=== PATIENT | male | born 1960 | race Caucasian/White ===

== ENCOUNTER → 2021-02-01 12:08 | Outpatient (CLI) | payer BC, SELFPAY ==
--- NOTE | ~2021-02-01 | MR_ITS ---
EXAMINATION: MR brain/brain stem wo/w con DATE: 02/01/2021 14:12 INDICATION: Other symptoms and signs involving cognitive functions. Memory loss. TECHNIQUE: Magnetic resonance imaging (MRI) of the brain and brainstem was performed without and with 18 mL MultiHance intravenous contrast. Sequences included sagittal and axial T1-weighted FSE, axial diffusion-weighted FS EPI, axial T2*-weighted GRE, axial T2-weighted FLAIR Propeller, and axial T2-we ighted Propeller. Postcontrast sequences included axial, sagittal, and coronal T1-weighted FSE. Appar ent diffusion coefficient (ADC) maps were created. COMPARISON: None. FINDINGS: There are scattered areas of nonspecific increased T2-weighted signal intensity in the cere bral white matter, which is within normal limits for the patient's age. There is no intracranial hemo rrhage, acute infarction, or abnormal intracranial mass lesion. The ventricles are normal in size. Th ere is a trace right pleural effusion. The orbits are normal. There is mild mucosal thickening in the ethmoid sinuses. IMPRESSION: 1. Normal aging brain. Reviewed, dictated and finalized at location A. STAIRS MAID IMPRESSION: 1. Normal aging brain.
[2021-02-01 13:42] LABS: Estimated Glomerular Filt Rate > 60
== END ==
PROVIDERS: PCP Physician Assistant; Visit Provider Physician Assistant
DX: R41.89 Other symptoms and signs involving cognitive functions and awareness (principal)
CPT/HCPCS: 70553; A9577

== ENCOUNTER 2023-03-13 13:28 | Emergency (ER) | payer BC, SELFPAY ==
[2023-03-13] VITALS (7 sets, daily range): BP systolic 110; BP diastolic 70; PULSE 72–81; RESP 17–27; TEMP 36.5; O2SAT 97–100
--- NOTE | ~2023-03-13 | CT_ITS ---
EXAMINATION: CT facial & cervical spine wo DATE: 03/13/2023 13:59 INDICATION: Fall. Facial injury. TECHNIQUE: Computed tomography (CT) of the facial bones and maxillofacial region and cervical spine w as performed without intravenous contrast. Automated exposure control and iterative reconstruction te chnique were employed. Exam dose: 546.47 mGy-cm total exam DLP. COMPARISON: None. FINDINGS: Examination is limited due to motion artifact. The frontozygomatic sutures, orbital rims and pittman, zygomatic arches, maxillary bones and pterygoid plates are intact. There is some motion artifact, but the nasal bones appear intact. Motion limits ev aluation of the mandible. The paranasal sinuses are normally developed and aerated, without opacification or fluid levels. There is straightening of cervical spine which may be due to muscle spasm. C1 and C2 are normally aligned and the odontoid process is intact. No fracture or dislocation or lock ed facet or prevertebral soft tissue swelling. There is moderate degenerative disc disease at C2-3. There is mild degenerative disc disease and minimal anterolisthesis at C3-4. C4-5 interspace is relatively well preserved. There is mildly severe degenerative disc disease at C5-6 and C6-C7. Uncovertebral joint spurring is noted, most prominent on the left at C5-6 and on the right at C6-7. IMPRESSION: Limited examination due to motion artifact Straightening of the cervical spine, which may be due to muscle spasm Moderately prominent cervical spondylosis; no fracture or dislocation or locked facet No apparent facial bone fracture Reviewed, dictated and finalized at Location A. Reviewed, dictated and finalized at location B. COORDINATOR
--- NOTE | ~2023-03-13 | CT_ITS ---
EXAMINATION: CT brain wo con DATE: 03/13/2023 13:59 INDICATION: Fall. Patient found face down. History of dementia. TECHNIQUE: Computed tomography (CT) of the head was performed without intravenous contrast. The mA wa s adjusted according to patient size. Iterative reconstruction technique was employed. Exam dose: 12 10.67 mGy-cm total exam DLP. COMPARISON: 02/01/2021 MRI brain/brainstem FINDINGS: Examination is limited by motion artifact despite 2 sets of images being performed. No intracranial mass lesion or hemorrhage, midline shift or mass effect or subdural or epidural hemat patricia is detected. Moderate cerebral and cerebellar volume loss. Intracranial cerebral calcified atherosclerosis. Nonspecific diminished attenuation of the cerebral w mica matter, likely due to chronic small vessel ischemic changes. Included paranasal sinuses and mastoid air cells are normally developed and aerated. No fracture or bone destruction of the cranial vault is evident. IMPRESSION: Limited examination due to motion; no acute intracranial finding or skull fracture is de tected Reviewed, dictated and finalized at Location A. Reviewed, dictated and finalized at location B. [facility]AL COURT REPORTER IMPRESSION: Limited examination due to motion; no acute intracranial finding o r skull fracture is detected
--- NOTE | 2023-03-13 13:36 | PC.NURSE ---
Pt answering orientation question, states he is Raymon Wilson pt states he is located in [facility] Pt giggling with answers
--- NOTE | 2023-03-13 15:05 | ED.FALL ---
HPI - Fall General Chief Complaint: Fall Stated Complaint: found on ground, facial injuries, +ETOH Time Seen by Provider: 03/13/23 14:05 History of Present Illness HPI Narrative: Patient is a 62-year-old male with a history of frontotemporal dementia presenting after a fall. Patient's is at bedside and helps with the history. 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 Sounds like he had purchased an airplane bottle of fireball. Patient has been declining in terms of his dementia and he does not recall falling today. He denies any complaints. No headache, facial pain, neck pain. Related Data Home Medications Medication Instructions Recorded Confirmed sertraline 100 mg tablet 100 mg PO DAILY 10/05/21 07/17/22 Allergies Allergy/AdvReac Type Severity Reaction Status Date / Time No Known Allergies Allergy Verified 01/21/23 09:58 Review of Systems Review of Systems: All systems reviewed & are unremarkable except as noted in HPI and below PMFSH Surgical History Surgical History H/O colonoscopy (~01/2011) H/O colonoscopy (~01/2016) Family History Family History Father Hypertension Family history of elevated blood lipids Acute myocardial infarction Malignant neoplasm of prostate Family history of coronary artery disease Social History Social History Smoking status: Never smoker Second hand tobacco smoke exposure: No Alcohol intake: current Drinks per week: 10 Substance use: never Substance use type: does not use Lack of Transportation: No Lack of Food: Never True Current Housing: I Have Housing Concerned About Future Housing: No Difficulty Paying Gas/Electric Bills: No Difficulty Paying for Meds: No Currently Unemployed: No Difficulty w/ Childcare or Family Care: No Living arrangements: with family Occupation/Education: occupation Gender identity (if verbalized by the patient): Male Exam Narrative: GENERAL: Nontoxic, no acute distress, pleasant and cooperative HEAD: Normocephalic, abrasion to upper nasal bridge EYES: PERRLA and EOMI. ENT: Nares clear, no rhinorrhea or epistaxis. Mucous membranes moist. NECK: Supple. no midline tenderness CHEST: Clear to auscultation. No respiratory distress. HEART: Regular rate and rhythm ABDOMEN: Soft, nontender, nondistended EXTREMITIES: Normal range of motion. SKIN: Warm, dry, no rash. NEURO: Alert and oriented x1. PSYCH: Normal mood and affect. Course Vital Signs Vital signs: Vital Signs Temperature 97.7 F 03/13/23 13:25 Pulse Rate 81 03/13/23 13:25 Respiratory Rate 24 H 03/13/23 13:25 Blood Pressure 110/70 03/13/23 13:25 Pulse Oximetry 98 03/13/23 13:25 Oxygen Delivery Room Air 03/13/23 13:25 Temperature 97.7 F 03/13/23 13:25 Pulse Rate 72 03/13/23 15:00 Respiratory Rate 20 03/13/23 15:00 Blood Pressure 110/70 03/13/23 13:25 Pulse Oximetry 100 03/13/23 15:00 Oxygen Delivery Room Air 03/13/23 13:25 MDM - Fall MDM Narrative Medical decision making narrative: 62-year-old male presenting after a fall. Vitals stable. Exam remarkable for the above. CT brain, facial bones, C-spine show no acute abnormalities. Patient is safe for outpatient management. Patient's is here, will stay with him. Appropriate return precautions given. Discharged stable condition. Differential Diagnosis Differential diagnosis: Likely other ( Fall, facial abrasion) Medical Records Attestation: I reviewed the patient's medical records. Imaging Data Radiologist's impression: ITS Impressions Head CT 03/13/23 13:59 IMPRESSION: Limited examination due to motion; no acute intracranial finding or skull fracture is detecte
== END 2023-03-13 15:25 | disposition home or self-care (01) ==
PROVIDERS: Emergency Provider Emergency Medicine; PCP Family Medicine
DX: S00.31XA Abrasion of nose, initial encounter (principal); G31.09 Other frontotemporal neurocognitive disorder; F02.80 Dementia in other diseases classified elsewhere, unspecified severity, without behavioral disturbance, psychotic disturbance, mood disturbance, and anxiety; W19.XXXA Unspecified fall, initial encounter
CPT/HCPCS: 70450; 70486; 72125; 99284; L0140

== ENCOUNTER 2024-03-27 13:56 | Emergency (ER) | payer BC, MEDICARE, SELFPAY ==
--- NOTE | ~2024-03-27 | XR_ITS ---
EXAMINATION: XR chest 2V 03/27/2024 14:58 INDICATION: Status post fall. Chest pain. PROCEDURE: 2 view chest COMPARISON: No prior studies for comparison. FINDINGS: The lungs are clear. The cardiomediastinal silhouette is within normal limits. There are no pleural effusions. There is no pneumothorax suspected. IMPRESSION: 1: NO ACUTE CARDIOPULMONARY DISEASE. Reviewed, dictated and finalized at location A. 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
--- NOTE | ~2024-03-27 | CT_ITS ---
EXAMINATION: 1. CT facial & cervical spine wo DATE: 03/27/2024 15:06 INDICATION: Head injury TECHNIQUE: 1. Computed tomography (CT) of the maxillofacial region and of the cervical spine were performed with out intravenous contrast. Sagittal and coronal reconstructions of both regions were obtained. The mA was adjusted according to patient size. Iterative reconstruction technique was employed. The dose-chani gth product was 613.42 mGy-cm. COMPARISON: None. FINDINGS: Maxillofacial CT: Mild scattered motion artifact. Small anterior left frontal scalp hematoma without underlying calvari al fracture. No maxillofacial fractures. Specifically the nasal bones,, zygomatic arches, mandible an d pittman of the orbits and paranasal sinuses are intact. Mastoid air cells and middle ear cavities are clear. There is also thickening in the right sphenoid sinus.. Cervical spine CT: 15 degrees cervicothoracic dextroscoliosis. Sagittal alignment is normal. Vertebral body heights are normal. No acute fracture. Moderate disc height loss with severe left-sided and moderate right-sided uncovertebral osteoarthritis at C5-C6 and C6-C7. Mild disc height loss at C2-C3 and multiple levels i n the visualized upper thoracic spine. Disc bulge at C2-C3, C4-C5 and posterior disc osteophyte compl ex at C5-C6 resulting in mild central canal stenosis. There is multilevel moderate to severe left-mary ed and mild to moderate right-sided cervical facet osteoarthritis. There is multilevel bilateral cerv ical neural foraminal stenosis, moderate on the right at C3-C4 and on the left at C3-C4 through C5-C6 . Mild to moderate neural foraminal stenosis on the right at C6-C7 and on the left at C7-T1. Mild jemal ral from stenosis at the remaining cervical levels. Visualized portions of the upper lungs are clear. Visualized superior mediastinum and cervical soft tissues are unremarkable. IMPRESSION: 1. No maxillofacial fractures. 2. Moderate cervical spondylosis without acute osseous abnormality. Reviewed, dictated and finalized at location B. 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
--- NOTE | ~2024-03-27 | CT_ITS ---
EXAMINATION: CT brain wo con DATE: 03/27/2024 15:06 INDICATION: Head injury TECHNIQUE: Computed tomography (CT) of the head was performed without intravenous contrast. Sagittal and coronal reconstructions were performed. The mA was adjusted according to patient size. Iterative reconstruction technique was employed. The dose-length product was 681.00 mGy-cm. COMPARISON: head CT dated 03/13/2023 FINDINGS: No fracture. No acute intracranial hemorrhage, acute infarction or abnormal extra axial fluid collect ion. Ventricles are normal and symmetric. No mass/mass effect. Mild mucosal thickening the right sphe noid sinus. The orbits and mastoid air cells are normal. IMPRESSION: 1. No fracture or acute intracranial process. Reviewed, dictated and finalized at location B. 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
--- NOTE | ~2024-03-27 | XR_ITS ---
XR pelvis 1-2V 03/27/2024 14:58 Indication: Pelvic pain after fall Procedure: AP pelvis Comparison: No prior studies for comparison. Findings: Mild osteoarthritis of the hips. Pelvic rings are intact. There is lower lumbar spondylosis . Sclerotic lesion in the left femur proximally likely a bone island. No acute fracture or traumatic malalignment. Sacral foramen are symmetric. There are pelvic phleboliths. Impression: 1: No acute abnormality of the pelvis. Reviewed, dictated and finalized at location A. 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
[2024-03-27 14:33] VITALS: BP 136/96; PULSE 78; RESP 16; TEMP 36.6; O2SAT 100
--- NOTE | 2024-03-27 14:36 | ED_ITS ---
HPI - Head Injury General Chief complaint: Head Injury <Anupama Perdomo PA-C - Last Filed: 03/28/24 17:57> Stated complaint: unspecied <Anupama Perdomo PA-C - Last Filed: 03/28/24 17:57> Time Seen by Provider: 03/27/24 14:36 <Anupama Perdomo PA-C - Last Filed: 03/28/24 17:57> Focused HPI: This is a 63 year old male that presents to the emergency department after a fall today with head injury. Reportedly patient had been drinking alcohol. No anticoagulation. GENERAL: Well-appearing, well-nourished, and in no acute distress. HEAD: Normocephalic. Contusion to the left side of the face CHEST: Clear to auscultation. ?No respiratory distress. HEART: Regular rate and rhythm.? NEURO: ?Alert and oriented x3. Patient screened in triage and initial orders placed.? ?Additional care and disposition to be based upon?diagnostic testing and treatment. <Anupama Perdomo PA-C - Last Filed: 03/28/24 17:57> History of Present Illness HPI Narrative: Agree with HPI. History from due to patient's dementia. Unknown quantity of alcohol that he consumes or how he may have obtained at outside of being at a gas station earlier in the day. Had a slip on tile while in his family member's home and slipped again outside. No observed loss of consciousness. <Yosvany Antoine MD - Last Filed: 03/27/24 20:33> Related Data Home medications: Home Medications ?Medication ?Instructions ?Recorded ?Confirmed ?Last Taken ?Type sertraline 100 mg tablet 150 mg PO DAILY 01/09/24 Unknown History <Anupama Perdomo PA-C - Last Filed: 03/28/24 17:57> Allergies/Adverse reactions: Allergies Allergy/AdvReac Type Severity Reaction Status Date / Time No Known Allergies Allergy Verified 01/09/24 15:12 <Anupama Perdomo PA-C - Last Filed: 03/28/24 17:57> Review of Systems 2 Review of Systems: ROS unobtainable: Yes unobtainable due to mental status <Yosvany Antoine MD - Last Filed: 03/27/24 20:33> [facility] Past Medical History Medical History: Medical History Elevated liver enzymes Elevated liver enzymes Polyp of colon SARS-CoV-2 positive Seasonal allergic rhinitis Thrombosed external hemorrhoid <Anupama Perdomo PA-C - Last Filed: 03/28/24 17:57> Surgical History Surgical History: Surgical History H/O colonoscopy (~01/2011) H/O colonoscopy (~01/2016) <Anupama Perdomo PA-C - Last Filed: 03/28/24 17:57> Family History Family History: Family History Father Hypertension Family history of elevated blood lipids Acute myocardial infarction Malignant neoplasm of prostate Family history of coronary artery disease <Anupama Perdomo PA-C - Last Filed: 03/28/24 17:57> Social History Social History: Social History Smoking status: Never smoker Second hand tobacco smoke exposure: No Alcohol intake: current Drinks per week: 10 Substance use: never Substance use type: does not use Lack of Transportation: No Lack of Food: Never True Current Housing: I Have Housing Concerned About Future Housing: No Difficulty Paying Gas/Electric Bills: No Difficulty Paying for Meds: No Currently Unemployed: No Difficulty w/ Childcare or Family Care: No Living arrangements: with family Occupation/Education: occupation Gender identity (if verbalized by the patient): Male <Anupama Perdomo PA-C - Last Filed: 03/28/24 17:57> Exam 2 Narrative: GENERAL: Well-appearing, well-nourished, and in no acute distress. HEAD: Normocephalic, atraumatic. Eyes: MALINA, EOMI, contusion medial aspect left upper lid. ENT: Mucous membranes moist. CHEST: Clear to auscultation. No respiratory distress. HEART: Regular rate and rhythm. Normal peripheral pulses. EXTREMITIES: Normal range of motion. No edema. NEURO: Alert orient to normal baseline. PSYCH: Normal mood and affect. <Yosvany Antoine MD - Last Filed: 03/27/24 20:33> Course Course Emergency Course: Patient and informed of lab and imaging results. Patient has metabolized to sobriety is felt appropriate for discharge. <Yosvany Antoine MD - Last Filed: 03/27/24 20:33> Vital Signs Vital signs: Vital Signs Temperature 97.8 F 03/27/24 14:33 Pulse Rate 78 03/27/24 14:33 Respiratory Rate 16 03/27/24 14:33 Blood Pressure 136/96 H 03/27/24 14:33 Pulse Oximetry 100 03/27/24 14:33 Oxygen Delivery Room Air 03/27/24 14:33 Temperature 97.8 F 03/27/24 14:33 Pulse Rate 78 03/27/24 14:33 Respiratory Rate 16 03/27/24 14:33 Blood Pressure 136/96 H 03/27/24 14:33 Pulse Oximetry 100 03/27/24 14:33 Oxygen Delivery Room Air 03/27/24 14:33 <Anupama Perdomo PA-C - Last Filed: 03/28/24 17:57> Vital Signs Temperature 97.8 F 03/27/24 14:33 Pulse Rate 78 03/27/24 14:33 Respiratory Rate 16 03/27/24 14:33 Blood Pressure 136/96 H 03/27/24 14:33 Pulse Oximetry 100 03/27/24 14:33 Oxygen Delivery Room Air 03/27/24 14:33 Temperature 97.8 F 03/27/24 14:33 Pulse Rate 78 03/27/24 14:33 Respiratory Rate 16 03/27/24 14:33 Blood Pressure 136/96 H 03/27/24 14:33 Pulse Oximetry 100 03/27/24 14:33 Oxygen Delivery Room Air 03/27/24 14:33 <Yosvany Antoine MD - Last Filed: 03/27/24 20:33> MDM - Head Injury Lab Data Result diagrams: 03/27/24 17:44 03/27/24 17:44 <Anupama Perdomo PA-C - Last Filed: 03/28/24 17:57> Labs: Lab Results 03/27/24 Range/Units 17:44 WBC 10.2 H (4.5-10.0) K/mm3 RBC 4.37 L (4.6-6.20) M/mm3 Hgb 13.5 L (14.0-18.0) g/dL Hct 40.7 L (42.0-52.0) % MCV 93.1 (80-100) fl MCH 30.9 (26-34) pg MCHC 33.2 (32-36) g/dl RDW 13.4 (11.5-14.5) % Plt Count 262 (150-375) k/mm3 MPV 9.1 (7.4-10.4) fl Immature Gran % (Auto) 0.9 H (0-0.5) % Neut % (Auto) 62.2 (45.5-73.1) % Lymph % (Auto) 19.7 (18.3-44.2) % [place] % (Auto) 11.9 H (2.6-8.5) % Eos % (Auto) 4.6 H (0-4.4) % Baso % (Auto) 0.7 (0.2-1.2) % Lymph # (Auto) 2.00 (0.9-3.2) K/mm3 [place] # (Auto) 1.2 H (0.1-0.6) K/mm3 Eos # (Auto) 0.5 H (0-0.3) K/mm3 Baso # (Auto) 0.1 (0.0-0.1) K/mm3 Abs Immat Gran (auto) 0.09 H (0.00-0.031) K/mm3 Absolute Neuts (auto) 6.3 (1.3-6.7) K/mm3 Absolute Nucleated RBC 0.000 (0.0-0.012) K/mm3 Nucleated RBC % 0.0 (0.0-0.2) % Sodium 136 L (137-145) mmol/L Potassium 3.9 (3.4-5.0) mmol/L Chloride 102 (98-107) mmol/L Carbon Dioxide 20 L (22-30) mmol/L Anion Gap 14 H (4-12) mmol/L BUN 19 (9-20) mg/dL Creatinine 1.17 (0.7-1.3) mg/dL Estim Creat Clear Calc Not Reportable Estimated GFR > 60 (59 - ) Glucose 123 H (65-110) mg/dL Calcium 8.5 (8.4-10.2) mg/dL Total Bilirubin 0.6 (0.2-1.3) mg/dL AST 31 (17-59) U/L ALT 33 (6-50) U/L Alkaline Phosphatase 82 (38-126) U/L Total Protein 7.0 (6.3-8.2) g/dL Albumin 4.1 (3.5-5.1) g/dL Ethyl Alcohol 130 (<10) mg/dL <Anupama Perdomo PA-C - Last Filed: 03/28/24 17:57> Lab Results 03/27/24 Range/Units 17:44 WBC 10.2 H (4.5-10.0) K/mm3 RBC 4.37 L (4.6-6.20) M/mm3 Hgb 13.5 L (14.0-18.0) g/dL Hct 40.7 L (42.0-52.0) % MCV 93.1 (80-100) fl MCH 30.9 (26-34) pg MCHC 33.2 (32-36) g/dl RDW 13.4 (11.5-14.5) % Plt Count 262 (150-375) k/mm3 MPV 9.1 (7.4-10.4) fl Immature Gran % (Auto) 0.9 H (0-0.5) % Neut % (Auto) 62.2 (45.5-73.1) % Lymph % (Auto) 19.7 (18.3-44.2) % [place] % (Auto) 11.9 H (2.6-8.5) % Eos % (Auto) 4.6 H (0-4.4) % Baso % (Auto) 0.7 (0.2-1.2) % Lymph # (Auto) 2.00 (0.9-3.2) K/mm3 [place] # (Auto) 1.2 H (0.1-0.6) K/mm3 Eos # (Auto) 0.5 H (0-0.3) K/mm3 Baso # (Auto) 0.1 (0.0-0.1) K/mm3 Abs Immat Gran (auto) 0.09 H (0.00-0.031) K/mm3 Absolute Neuts (auto) 6.3 (1.3-6.7) K/mm3 Absolute Nucleated RBC 0.000 (0.0-0.012) K/mm3 Nucleated RBC % 0.0 (0.0-0.2) % Sodium 136 L (137-145) mmol/L Potassium 3.9 (3.4-5.0) mmol/L Chloride 102 (98-107) mmol/L Carbon Dioxide 20 L (22-30) mmol/L Anion Gap 14 H (4-12) mmol/L BUN 19 (9-20) mg/dL Creatinine 1.17 (0.7-1.3) mg/dL Estim Creat Clear Calc Not Reportable Estimated GFR > 60 (59 - ) Glucose 123 H (65-110) mg/dL Calcium 8.5 (8.4-10.2) mg/dL Total Bilirubin 0.6 (0.2-1.3) mg/dL AST 31 (17-59) U/L ALT 33 (6-50) U/L Alkaline Phosphatase 82 (38-126) U/L Total Protein 7.0 (6.3-8.2) g/dL Albumin 4.1 (3.5-5.1) g/dL Ethyl Alcohol 130 (<10) mg/dL <Yosvany Antoine MD - Last Filed: 03/27/24 20:33> Imaging Data Radiologist's impression: ITS Impressions Chest X-Ray 03/27/24 14:59 IMPRESSION: 1: NO ACUTE CARDIOPULMONARY DISEASE. Pelvis X-Ray 03/27/24 15:00 Impression: 1: No acute abnormality of the pelvis. Head CT 03/27/24 15:15 IMPRESSION: 1. No fracture or acute intracranial process. Head/Cervical Spine/Facial Bones CT 03/27/24 15:17 IMPRESSION: 1. No maxillofacial fractures. 2. Moderate cervical spondylosis without acute osseous abnormality. <Yosvany Antoine MD - Last Filed: 03/27/24 20:33> Critical Care Time Critical Care Time Critical Care Time: No <Anupama Perdomo PA-C - Last Filed: 03/28/24 17:57> Discharge Plan Discharge Clinical Impression: Contusion of eyelid Qualifiers: Encounter type: initial encounter Laterality: left Qualified Code(s): S00.12XA - Contusion of left eyelid and periocular area, initial encounter Alcohol intoxication Qualifiers: Complication of substance-induced condition: uncomplicated Qualified Code(s): F 10.920 - Alcohol use, unspecified with intoxication, uncomplicated <Anupama Perdomo PA-C - Last Filed: 03/28/24 17:57> Patient Disposition: Home, Self-Care <Anupama Perdomo PA-C - Last Filed: 03/28/24 17:57> Condition: Stable <BRISSA Pérez Last Filed: 03/28/24 17:57> Instructions: Black Eye (ED), Alcohol Intoxication (ED) <Anupama Perdomo PA-C - Last Filed: 03/28/24 17:57> Additional Instructions: Return the ER if you have recurrent falls, you develop fever 100.4? F, or you have additional concerns. <Anupama Perdomo PA-C - Last Filed: 03/28/24 17:57> Patient Language: Telugu <BRISSA Pérez Last Filed: 03/28/24 17:57> Prescriptions: No Action sertraline 100 mg tablet 150 mg PO DAILY lisinopril 5 mg tablet See Rx Instructions .ROUTE .COMPLEX Qty: 90 1RF Dose Instruction: Take 1 tablet by mouth once daily Rx Instructions: Take 1 tablet by mouth once daily azelastine 205.5 mcg (0.15 %) spray,non-aerosol 2 spray intranasal DAILY Qty: 30 0RF Rx Instructions: administer into each nostril loratadine [Claritin] 10 mg tablet 10 mg PO DAILY Qty: 90 3RF <Anupama Perdomo PA-C - Last Filed: 03/28/24 17:57> Follow-up/Referrals: Pawan Bauer MD [Primary Care Provider] - 1 Week <BRISSA Pérez Last Filed: 03/28/24 17:57>
--- OUTSIDE RECORDS SUMMARY | 2024-03-27 16:03 | XMS_ITS | Encounter Summary ---
Author Organization [facility] Address [address] [place] [address] Care Team Providers Care Pants Cutter Name Role Phone Jaylen Lo DO Primary Care Provider [phone] Encounter Details Date Type Department Care Team (Late st Contact Info) Description 03/29/2005 Outpatient Historical [facility] Medicine - [facility] [address] [facility] 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
--- OUTSIDE RECORDS SUMMARY | 2024-03-27 16:03 | XMS_ITS | Encounter Summary ---
Author Organization [facility] Address [address] [place] [address] Care Team Providers Care Commercial Trailer Truck Driver Name Role Phone Jaylen Lo DO Primary Care Provider [phone] Encounter Details Date Type Department Care Team (Late st Contact Info) Description 06/15/2005 Outpatient Historical [facility] Medicine - [facility] [address] [facility] [address] [place] [address] Mumtaz Carrington MD [address] [facility] [address] [place] [phone] Social History Tobacco Use Types Packs/Day Years Used Date Smoking Tobacco: Never Assessed Sex and Gender Information Value Date Recorded Sex Assigned at Not on file Legal Sex Male 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
--- OUTSIDE RECORDS SUMMARY | 2024-03-27 16:03 | XMS_ITS | Referral Summary ---
Author Organization [facility] Address [address] [place] [address] Care Team Providers Care Beef Killer Name Role Phone Pawan Bauer MD Primary Care Provider [phone] Encounters Date Type Department Care Team Description 01/06/2024 12:15 PM POST ACUTE CARE NURSE PRACTITIONER Office Visit [facility] Memory Diagnostic [address] [place] [address] Sharon London NP Frontotemporal dementia (HCC) (Primary Dx) from Last 3 Months Allergies No known active allergies Medications lisinopriL (PRINIVIL,ZESTR IL) 10 mg tablet Take 0.5 tablets (5 mg total) by mouth daily Active melatonin 10 mg capsule Take 5 mL by mouth Active fluticasone propionate (FLONASE) 50 mcg/actuation nasal spray Administer 2 sprays into each nostril daily Active loratadine 10 mg capsule Take by mouth Activ e Multivits/Iron Fum/FA/D3/Lycop (MULTI FOR HIM ORAL) Take by mouth Active sertraline (ZOLOFT) 100 mg tablet Take 1.5 tablets (150 mg total) by mouth daily 135 tablet 3 4 Active Active Problems Problem Noted Date Diagnosed Date Frontotemporal dementia 09/14/2021 Assessment & Plan (06/20/2023 11:38 AM CDT): CS to continue counseling and Frontotemporal dementia support group Anxiety disorder 09/14/2021 Social History Tobacco Use Types Packs/Day Years Used Date Smoking Tobacco: Never Smokeless Tobacco: Never Tobacco Cessation:Counseling Given: Not Answered Comments:Smoked a cigar a couple of times, but not yrs. Sex and Gender Information Value Date Recorded Sex Assigned at Not on file Legal Sex Male 4:03 PM POST ACUTE CARE NURSE PRACTITIONER Gender Identity Not on file Sexual Orientation Not on file Last Filed Vital Signs Vital Sign Reading Time Taken Comments Blood Pressure 120/80 01/06/2024 12:23 PM POST ACUTE CARE NURSE PRACTITIONER Pulse 94 01/06/2024 12:23 PM POST ACUTE CARE NURSE PRACTITIONER Temperature 36.5 ??C (97.7 ??F) 01/06/2024 12:[address] Respiratory Rate - - Oxygen Saturation 98% 01/06/2024 12:23 PM POST ACUTE CARE NURSE PRACTITIONER Inhaled Oxygen Concentration - - Weight 105.9 kg (233 lb 8 oz) 01/06/2024 12:23 P M POST ACUTE CARE NURSE PRACTITIONER Height 182.9 cm (6') 01/06/2024 12:23 PM POST ACUTE CARE NURSE PRACTITIONER Body Mass Index 31.67 01/06/2024 12:23 PM POST ACUTE CARE NURSE PRACTITIONER Plan of Treatment Not on file Insurance [facility] MEDICARE [facility] Care Teams Beef Killer Relationship Specialty Start Date End Date Pawan Bauer MD PCP - General Family Medicine 09/14/21
--- OUTSIDE RECORDS SUMMARY | 2024-03-27 16:03 | XMS_ITS | Encounter Summary ---
Author Organization [employer] Address [address] [place] [address] Care Team Providers Care Electronics Engineering Professor Name Role Phone Jaylen Lo DO Primary Care Provider [phone] Encounter Details Date Type Department Care Team (Late st Contact Info) Description 04/23/2000 Outpatient Historical [facility] Jaylen Mayorga DO 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
--- OUTSIDE RECORDS SUMMARY | 2024-03-27 16:03 | XMS_ITS | Encounter Summary ---
Author Organization [facility] Address [address] [place] [address] Care Team Providers Care Payroll Secretary Name Role Phone Jaylen Lo DO Primary Care Provider [phone] Encounter Details Date Type Department Care Team (Late st Contact Info) Description 01/06/2002 Outpatient Historical [facility] Medicine - [facility] [address] [facility] [address] [place] [address] Mumtaz Carrington MD [address] [facility] [address] [place] [address] Social History Tobacco Use Types Packs/Day Years Used Date Smoking Tobacco: Never Assessed Sex and Gender Information Value Date Recorded Sex Assigned at Not on file 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
--- OUTSIDE RECORDS SUMMARY | 2024-03-27 16:03 | XMS_ITS | Clinical Summary ---
Author Organization [facility] Address [address] [place] [address] Care Team Providers Care Appian Bpm Developer Name Role Phone Pawan Bauer MD Primary Care Provider [phone] Allergies No known active allergies Medications lisinopriL [...] Frontotemporal dementia support group Anxiety disorder 09/14/2021 Encounters Date Type Department Care Team Description 01/06/2024 12:15 PM NETWORK SECURITY ANALYST Office Visit [facility] [address] [place] [address] 6th [address] [place] [address] Sharon London NP Frontotemporal dementia (HCC) (Primary Dx) from Last 3 Months Surgical History Surgery Date Site/Laterality Comments COLONOSCOPY 01/25/2011 - 02/24/2011 COLONOSCOPY 01/26/2016 - 02/25/2016 Medical History Medical History Date Comments Hypertension Family History Medical History Relation Name Comments Coronary artery disease Father Hyperlipidemia Father Hypertension Father Prostate cancer Father Alzheimer's disease Mother Relation Name Status Comments Father Mother Social History Tobacco Use Types Packs/Day Years Used Date Smoking Tobacco: Never Smokeless Tobacco: Never Tobacco Cessation:Counseling Given: Not Answered Comments:Smoked a cigar a couple of times, but not yrs. Sex and Gender Information Value Date Recorded Sex Assigned at Not on file Legal Sex Male 4:03 PM NETWORK SECURITY ANALYST Gender Identity Not on file Sexual Orientation Not on file Obstetrics History Last Filed Vital Signs Vital Sign Reading Time Taken Comments Blood Pressure 120/80 01/06/2024 12:23 PM NETWORK SECURITY ANALYST Pulse 94 01/06/2024 12:23 PM NETWORK SECURITY ANALYST Temperature 36.5 ??C (97.7 ??F) 01/06/2024 12:[address] Respiratory Rate - - Oxygen Saturation 98% 01/06/2024 12:23 PM NETWORK SECURITY ANALYST Inhaled Oxygen Concentration - - Weight 105.9 kg (233 lb 8 oz) 01/06/2024 12:23 P M NETWORK SECURITY ANALYST Height 182.9 cm (6') 01/06/2024 12:23 PM NETWORK SECURITY ANALYST Body Mass Index 31.67 01/06/2024 12:23 PM NETWORK SECURITY ANALYST Plan of Treatment Health Maintenance Due Date Last Done Comments Colon Cancer Screening-Colonoscopy 1960 Depression Screening 1960 Hepatitis C Screening 1960 Prostate Cancer Screening-PSA 1960 DTaP/Tdap/Td Vaccine (1 - Tdap) 06/30/1971 Hepatitis B Screening 1978 Regular Well Visit/Exam 18-64 1978 Zoster Vaccine (1 of 2) 2010 Covid-19 Vaccine (3 - 2023- season) 2023 01/16/2021, 05/03/2020 Influenza Vaccine (#1) 2023 , 11/27/2019, 10/28/2018, Additional history exists Pneumococcal vaccine <65 Aged Out No longer eligible based on patient's age to complete this topic Insurance [employer] [facility] MEDICARE [place] [employer] [place] Care Teams Appian Bpm Developer Relationship Specialty Start Date End Date Pawan Bauer MD PCP - General Family Medicine 09/14/21
--- OUTSIDE RECORDS SUMMARY | 2024-03-27 16:03 | XMS_ITS | Encounter Summary ---
Author Organization [facility] Address 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
--- OUTSIDE RECORDS SUMMARY | 2024-03-27 16:03 | XMS_ITS | Encounter Summary ---
Author Organization [employer] Address [address] [place] [address] Care Team Providers Care Custodian Blood Bank Name Role Phone Jaylen Lo DO Primary Care Provider [phone] Encounter Details Date Type Department Care Team (Late st Contact Info) Description 05/28/2001 Outpatient Historical [facility] [place] Job Strickland MD [address] 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
--- OUTSIDE RECORDS SUMMARY | 2024-03-27 16:03 | XMS_ITS | Clinical Summary ---
Author Organization [facility] Address [address] [place] [address] Care Team Providers Care Immigration Patrol Inspector Name Role Phone Unavailable Primary Care Provider Unavailabl e Social History Tobacco Use Types Packs/Day Years Used Date Smoking Tobacco: Never Assessed Sex and Gender Information Value Date Recorded Sex Assigned at Not on file Legal Sex Male 11:54 AM SEEDLING PULLER Gender Identity Not on file Sexual Orientation Not on file Plan of Treatment Health Maintenance Due Date Last Done Comments Hepatitis C Virus (HCV) Screening 1960 TdaP Immunization 1960 Colonoscopy 2005 Colorectal Cancer Screening 2005 Cologuard 2010 Immunochemical Fecal Occult Blood 2010 Pneumococcal Immunization (5 0+ years) (1 of 1 - PCV) 2010 Zoster Immunization (1 of 2) 2010 PSA Discussion 06/30/2015 Influenza Immunization (#1) 2023 SARS-COV-2 Immunization ( - 2023- season) 2023 Respiratory Syncytial Virus (RSV) Immunization (Adult) (1 - 1-dose 75+ series) 06/30/2035 Hepatitis B Immunization Aged Out No longer eligible based on patient's age to complete this topic Meningococcal Immunization (ACWY) Aged Out No longer eligible based on patient's age to complete this topic Pneumococcal Immunization Combined Aged Out No longer eligible based on patient's age to complete this topic Rotavirus Immunization Aged Out No lo nger eligible based on patient's age to complete this topic
--- OUTSIDE RECORDS SUMMARY | 2024-03-27 16:03 | XMS_ITS | Encounter Summary ---
Author Organization [employer] Address [address] [place] [address] Care Team Providers Care Audit Machine Operator Name Role Phone Jaylen Lo DO Primary Care Provider [phone] Encounter Details Date Type Department Care Team (Late st Contact Info) Description 06/02/1999 Outpatient Historical [facility] Jaylen Mayorga DO [address] [facility] [address] [place], [place] [address] Social History Tobacco Use Types Packs/Day Years Used Date Smoking Tobacco: Never Assessed Sex and Gender Information Value Date Recorded Sex Assigned at Not on file Legal Sex Male 5:19 AM INFANT NANNY Gender Identity Not on file Sexual Orientation Not on file documented as of this encounter Plan of Treatment Not on file documented as of this encounter Visit Diagnoses Not on filedocumented in this encounter Care Teams Audit Machine Operator Relationship Specialty Start Date End Date Jaylen Lo DO PCP - General 01/04/15 documented as of this encounter
--- OUTSIDE RECORDS SUMMARY | 2024-03-27 16:03 | XMS_ITS | Referral Summary ---
Author Organization [facility] Address [address] [place] [address] Care Team Providers Care Jack Winder Name Role Phone Unavailable Primary Care Provider Unavailabl e Source Comments [facility],non-owned Affiliates and Associated Physician Practices is amultiple site organization consisting of ambulatory clinics and hospital sitesin [place], [place], [place] and [place]. This disclosure is being madepursuant to the Care Everywhere program and may not contain all information available regarding this patient. Last updated 17.[facility] [employer] Allergies No known active allergies Immunizations Name Administration Dates Next Due INFLUENZA VACCINE, QUADR. (F LUZONE; FLULAVAL; FLUARIX; AFLURIA QUADRIVALENT; 6MO+), 0.5 ML (IIV4) 11/27/2019 Social History Tobacco Use Types Packs/Day Years Used Date Smoking Tobacco: Never Assessed Sex and Gender Information Value Date Recorded Sex Assigned at Not on file Gender Identity Not on file Sexual Orientation Not on file Plan of Treatment Not on file
--- OUTSIDE RECORDS SUMMARY | 2024-03-27 16:03 | XMS_ITS | Encounter Summary ---
Author Organization [employer] Address 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
--- OUTSIDE RECORDS SUMMARY | 2024-03-27 16:03 | XMS_ITS | Encounter Summary ---
Author Organization [facility] Address [address] [place] [address] Care Team Providers Care Locomotive Firer/Fireman Name Role Phone Jaylen Lo DO Primary Care Provider Encounter Details Date Type Department Care Team (Late st Contact Info) Description 06/22/2002 Outpatient Historical [facility] Medicine - [facility] [address] [facility] [address] [place] [address] Mumtaz Carrington MD [address] [facility] [address] [place] [address] Social History Tobacco Use Types Packs/Day Years Used Date Smoking Tobacco: Never Assessed Sex and Gender Information Value Date Recorded Sex Assigned at Not on file 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
--- OUTSIDE RECORDS SUMMARY | 2024-03-27 16:03 | XMS_ITS | Encounter Summary ---
Author Organization [employer] Address [address] [place] [address] Care Team Providers Care Assistant Kitchen Manager Name Role Phone Jaylen Lo DO Primary Care Provider Encounter Details Date Type Department Care Team (Late st Contact Info) Description 02/07/1999 Outpatient Historical [facility] Jaylen Mayorga DO [address] [facility] [address] [place], [place] [address] Social History Tobacco Use Types Packs/Day Years Used Date Smoking Tobacco: Never Assessed Sex and Gender Information Value Date Recorded Sex Assigned at Not on file Legal Sex Male 5:19 AM BOX BENDER Gender Identity Not on file Sexual Orientation Not on file documented as of this encounter Plan of Treatment Not on file documented as of this encounter Visit Diagnoses Not on filedocumented in this encounter Care Teams Assistant Kitchen Manager Relationship Specialty Start Date End Date Jaylen Lo DO PCP - General 01/04/15 documented as of this encounter
--- OUTSIDE RECORDS SUMMARY | 2024-03-27 16:03 | XMS_ITS | Clinical Summary ---
Author Organization [facility] [employer] Address [address] [place] [address] Care Team Providers Care Senior Solutions Architect Name Role Phone Unavailable Primary Care Provider Unavailabl e Source Comments [facility],non-owned Affiliates and Associated Physician Practices is amultiple site organization consisting of ambulatory clinics and hospital sitesin [place], [place], [place] and [place]. This disclosure is being madepursuant to the Care Everywhere program and may not contain all information available regarding this patient. Last updated 17.[facility] [employer] Allergies No known active allergies Immunizations Name [...] Health Maintenance Due Date Last Done Comments COLOGUARD (AGES 45-75) - COL ON CA SCREENING 1960 COLON MONITORING 1960 COLONOSCOPY - COLON CA SCREENING 1960 CT COLONOGRAPHY - COLON CA SCREENING 1960 Colorectal Cancer Screening 1960 FIT - COLON CA SCREENING 1960 FLEX SIG - COLON CA SCREENING 1960 LIPID TESTING 1960 HIV SCREENING 06/30/1975 HEPATITIS C SCREENING 06/25/1978 DTAP/TDAP/TD VACCINES (1 - Tdap) 06/30/1979 PNEUMOCOCCAL VACCINE 50+ (1 of 1 - PCV) 2010 ZOSTER VACCINE (1 of 2) 2010 COVID-19 VACCINE (1 - 2024-2 5 season) 2023 INFLUENZA VACCINE (#1) 2023 11/27/2019 DEPRESSION SCREENING 02/26/2024 Respiratory Syncytial Virus (RSV) Vaccine Pt: or over 60 yrs (1 - 1-dose 75+ series) 06/30/2035 HEPATITIS B VACCINE Aged Out No longe r eligible based on patient's age to complete this topic HIB VACCINE Aged Out No longer eligi ble based on patient's age to complete this topic HPV VACCINE Aged Out No longer eligi ble based on patient's age to complete this topic MENINGOCOCCAL (Group B) VACCINE Aged Out No longer eligible based on patient's age to complete this topic MENINGOCOCCAL VACCINE Aged Out No deidra jeff eligible based on patient's age to complete this topic PNEUMOCOCCAL VACCINE Aged Out No long er eligible based on patient's age to complete this topic
--- OUTSIDE RECORDS SUMMARY | 2024-03-27 16:03 | XMS_ITS | Patient Health Summary ---
Author Organization [facility] Address [address] [place] [address] Care Team Providers Care Referral Nurse Name Role Phone Unavailable Primary Care Provider Unavailabl e Note from [facility],non-owned Affiliates and Associated Physician Practices is amultiple site organization consisting of ambulatory clinics and hospital sitesin [place], [place], [place] and [place]. This disclosure is being madepursuant to the Care Everywhere program and may not contain all information available regarding this patient. Last updated 17.[facility] Allergies No known active allergies Immunizations * INFLUENZA VACCINE, QUADR. (FLUZONE; FLULAVAL; FLUARIX; AFLURIA QUADRIVALENT; 6MO+), 0.5 ML (IIV4)(Given 11/27/2019) Social History Tobacco Use Types Packs/Day Years Used Date Smoking Tobacco: Never Assessed Sex and Gender Information Value Date Recorded Sex Assigned at Not on file Gender Identity Not on file Sexual Orientation Not on file Procedures * GROSS + MICRO EXAM(Performed 02/22/2000) * GROSS + MICRO EXAM(Performed 02/02/2000) Results * GROSS + MICRO EXAM (02/22/2000 2:04 PM VOCATIONAL PSYCHOLOGIST) Only the most recent of2 resultswithin the time period is included. Result CASE NUMBER [id number] Comment: ORDERING PHYSICIAN ??LUZMA PEDROZA SPECIMEN TYPE ?Eye,Left-caruncle Preop Dx ? Caruncle, left eye Postop Dx ?See above Clinical Findings ?See above GROSS DESCRIPTION ? The specimen is labeled caruncle, left ear consists of a single brownish fragment of tissue which is 2 x 1 x 1 mm. ??Specimen submitted.(mgb)lmq BLOCK ??A - Caruncle left ear, levels. Grossed by ? Mohan Morin M.D. MICROSCOPIC EXAMINATION ? Sections show a small fragment of conjunctiva lined by unremarkable epithelium. ??Mild nonspecific chronic inflammation is present. ??(dkh) clr DIAGNOSIS ? Eyelid, left, biopsy - ? Chronic inflammation, nonspecific Read by ?Michelle Flores M.D. Released By ?MICHELLE FLORES cc ? MD Marc MISCELLANEOUS SAMPLES / Unknown 02/22/2000 2:04 PM VOCATIONAL PSYCHOLOGIST 02/22/2000 2:05 PM VOCATIONAL PSYCHOLOGIST Historical Provider LAB - PATHOLOGY/C YTOLOGY ORDERABLES
--- OUTSIDE RECORDS SUMMARY | 2024-03-27 16:03 | XMS_ITS | Encounter Summary ---
Author Organization [employer] Address 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
--- OUTSIDE RECORDS SUMMARY | 2024-03-27 16:03 | XMS_ITS | Clinical Summary ---
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 LEAD Gender Identity Not on file Sexual Orientation Not on file Plan of Treatment Health Maintenance Due Date Last Done Comments DTAP/TDAP/TD VACCINES (1 - Tdap) 06/30/1979 COLORECTAL SCREENING 2005 Colorectal Cancer Screening 2005 FIT-DNA Q 3 years 2005 FIT/FOBT Q 1 year 2005 Flex Sig/CT Colonography Q 5 years 2005 ZOSTER VACCINE (1 of 2) 2010 INFLUENZA VACCINE (#1) 2023 RSV VACCINE (60+ or ) (1 - 1-dose 75+ series) 06/30/2035 PNEUMOCOCCAL VACCINE 0-64 YEARS Aged Out No longer eligible based on patient's age to complete this topic Care Teams Master Electrician Relationship Specialty Start Date End Date Jaylen Lo DO PCP - General 01/04/15
--- OUTSIDE RECORDS SUMMARY | 2024-03-27 16:03 | XMS_ITS | Encounter Summary ---
Author Organization [employer] Address [address] [place] [address] Care Team Providers Care Minister Assistant Name Role Phone Jaylen Lo DO Primary Care Provider [phone] Encounter Details Date Type Department Care Team (Late st Contact Info) Description 03/13/2000 Outpatient Historical [facility] Jaylen Mayorga DO [address] [facility] [address] [place], [place] [address] Social History Tobacco Use Types Packs/Day Years Used Date Smoking Tobacco: Never Assessed Sex and Gender Information Value Date Recorded Sex Assigned at Not on file Legal Sex Male 5:19 AM RESPIRATORY CARE PROGRAM DIRECTOR Gender Identity Not on file Sexual Orientation Not on file documented as of this encounter Plan of Treatment Not on file documented as of this encounter Visit Diagnoses Not on filedocumented in this encounter Care Teams Minister Assistant Relationship Specialty Start Date End Date Jaylen Lo DO PCP - General 01/04/15 documented as of this encounter
--- OUTSIDE RECORDS SUMMARY | 2024-03-27 16:03 | XMS_ITS | Encounter Summary ---
Author Organization [employer] Address 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
--- OUTSIDE RECORDS SUMMARY | 2024-03-27 16:03 | XMS_ITS | Encounter Summary ---
Author Organization Address [address] [place] [address] Care Team Providers Care Rn Supplemental Name Role Phone Jaylen Lo DO Primary Care Provider [phone] Encounter Details Date Type Department Care Team (Late st Contact Info) Description 01/06/2002 Outpatient Historical [facility] Medicine - [facility] [address] [facility] [address] [place] [address] Mumtaz Carrington MD [address] [facility] [address] [place] [phone] Social History Tobacco Use Types Packs/Day Years Used Date Smoking Tobacco: Never Assessed Sex and Gender Information Value Date Recorded Sex Assigned at Not on file 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
--- OUTSIDE RECORDS SUMMARY | 2024-03-27 16:03 | XMS_ITS | Encounter Summary ---
Author Organization [facility] Address [address] [place] [address] Care Team Providers Care Java Web Engineer Name Role Phone Jaylen Lo DO Primary Care Provider [phone] Encounter Details Date Type Department Care Team (Late st Contact Info) Description 05/20/2002 Outpatient Historical [facility] Medicine - [facility] [address] [facility] [address] [place] [address] Mumtaz Carrington MD [address] [facility] [address] [place] [phone] Social History Tobacco Use Types Packs/Day Years Used Date Smoking Tobacco: Never Assessed Sex and Gender Information Value Date Recorded Sex Assigned at Not on file 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
--- OUTSIDE RECORDS SUMMARY | 2024-03-27 16:03 | XMS_ITS | Encounter Summary ---
Author Organization [facility] Address [address] [place] [address] Care Team Providers Care Artist'S Manager Name Role Phone Jaylen Lo DO Primary Care Provider [phone] Encounter Details Date Type Department Care Team (Late st Contact Info) Description 04/09/2002 Outpatient Historical [facility] Medicine - [facility] [address] [facility] [address] [place] [address] Mumtaz Carrington MD [address] [facility] [address] [place] [phone] Social History Tobacco Use Types Packs/Day Years Used Date Smoking Tobacco: Never Assessed Sex and Gender Information Value Date Recorded Sex Assigned at Not on file 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
[2024-03-27 17:58] LABS: Basophils Absolute Auto 0.1 K/mm3 (0.0-0.1); Basophils Percent Auto 0.7 % (0.2-1.2); Eosinophils Absolute Auto 0.5 K/mm3 (0-0.3); Eosinophils Percent Auto 4.6 % (0-4.4); Hematocrit 40.7 % (42.0-52.0); Hemoglobin 13.5 g/dL (14.0-18.0); Immature Granulocyte Absolute 0.09 K/mm3 (0.00-0.031); Immature Granulocyte Percent A 0.9 % (0-0.5); Lymphocytes Percent Auto 19.7 % (18.3-44.2); Mean Corpuscular HGB Conc 33.2 g/dl (32-36); Mean Corpuscular Hemoglobin 30.9 pg (26-34); Mean Corpuscular Volume 93.1 fl (80-100); Mean Platelet Volume 9.1 fl (7.4-10.4); Monocytes Absolute Auto 1.2 K/mm3 (0.1-0.6); Monocytes Percent Auto 11.9 % (2.6-8.5); Neutrophils Absolute Auto 6.3 K/mm3 (1.3-6.7); Neutrophils Percent Auto 62.2 % (45.5-73.1); Platelet Count Result 262 k/mm3 (150-375); Red Blood Count 4.37 M/mm3 (4.6-6.20); Red Cell Distribution Width 13.4 % (11.5-14.5); White Blood Count 10.2 K/mm3 (4.5-10.0)
[2024-03-27 18:06] LABS: Ethanol 130 mg/dL (<10)
[2024-03-27 18:07] LABS: Alanine Aminotransferase 33 U/L (6-50); Albumin Level 4.1 g/dL (3.5-5.1); Alkaline Phosphatase 82 U/L (38-126); Anion Gap 14 mmol/L (4-12); Aspartate Amino Transferase 31 U/L (17-59); Bilirubin,Total 0.6 mg/dL (0.2-1.3); Blood Urea Nitrogen 19 mg/dL (9-20); Calcium 8.5 mg/dL (8.4-10.2); Carbon Dioxide 20 mmol/L (22-30); Chloride 102 mmol/L (98-107); Estimated Glomerular Filt Rate > 60; Glucose 123 mg/dL (65-110); Potassium 3.9 mmol/L (3.4-5.0); Sodium 136 mmol/L (137-145)
== END 2024-03-27 20:46 | disposition home or self-care (01) ==
PROVIDERS: Physician Assistant; Emergency Provider Emergency Medicine; PCP Family Medicine
DX: S00.12XA Contusion of left eyelid and periocular area, initial encounter (principal); F10.920 Alcohol use, unspecified with intoxication, uncomplicated; W19.XXXA Unspecified fall, initial encounter
CPT/HCPCS: 36415; 70450; 70486; 71046; 72125; 72170; 80053; 82077; 85025; 99284

== ENCOUNTER 2024-05-16 11:27 | Emergency (ER) | payer BC, MEDICARE, SELFPAY ==
[2024-05-16 11:42] VITALS: BP 128/86; PULSE 81; RESP 16; TEMP 36.5; O2SAT 100
--- NOTE | 2024-05-16 12:30 | ED_ITS ---
HPI - General Adult General Chief complaint: Upper Respiratory Infection Stated complaint: COUGH/SINUS Time Seen by Provider: 05/16/24 12:30 Source: patient Mode of arrival: ambulatory Limitations: no limitations History of Present Illness HPI narrative: 63-year-old male patient presents to the [facility] with complaints of cold and sinus symptoms for the past 1-2 weeks. Denies any fevers, body aches or chills. Patient states he takes Estephania and Flonase daily for his sinus symptoms and has been taking some Delsym for the cough. Patient states he has had a lot of congestion, sinus drainage runny nose and fullness to the ears. Denies any pain to the ears. Denies any sore throat. Denies chest pain or shortness of breath. Related Data Home Medications ?Medication ?Instructions ?Recorded ?Confirmed ?Last Taken ?Type sertraline 100 mg tablet 150 mg PO DAILY 01/09/24 Unknown History Allergies Allergy/AdvReac Type Severity Reaction Status Date / Time No Known Allergies Allergy Verified 05/16/24 11:45 Review of Systems Review of Systems: CONSTITUTIONAL: Denies fever, chills, or sweats. EYES: Denies visual changes, redness, or discharge. ENT: Positive rhinorrhea, congestion, denies sore throat, or otalgia. CARDIOVASCULAR: Denies chest pain, palpitations, or edema. RESPIRATORY: positive cough or dyspnea. GASTROINTESTINAL: Denies abdominal pain, nausea, vomiting, or diarrhea. GENITOURINARY: Denies dysuria or hematuria. SKIN: Denies rash or itching. MUSCULOSKELETAL: Denies back pain, joint pain, or myalgia. NEUROLOGIC: Denies headache, numbness, or weakness. PSYCHIATRIC: Denies anxiety or depression. [facility] Past Medical History Medical History (Updated 05/16/24 @ 13:06 by ZIA Carter) Frontotemporal dementia Elevated liver enzymes Seasonal allergic rhinitis Polyp of colon SARS-CoV-2 positive Elevated liver enzymes Thrombosed external hemorrhoid Surgical History Surgical History H/O colonoscopy (~01/2016) H/O colonoscopy (~01/2011) Family History Family History Father Hypertension Family history of elevated blood lipids Acute myocardial infarction Malignant neoplasm of prostate Family history of coronary artery disease Social History Social History Smoking status: Never smoker Second hand tobacco smoke exposure: No Alcohol intake: current Drinks per week: 10 Substance use: never Substance use type: does not use Lack of Transportation: No Lack of Food: Never True Current Housing: I Have Housing Concerned About Future Housing: No Difficulty Paying Gas/Electric Bills: No Difficulty Paying for Meds: No Currently Unemployed: No Difficulty w/ Childcare or Family Care: No Living arrangements: with family Occupation/Education: occupation Gender identity (if verbalized by the patient): Male Comments At the time of my signature I agree with nursing past medical history, surgical, social, and family history. There is no relevant family history pertinent to the presenting complaint. Exam Narrative: GENERAL: Well-appearing, well-nourished, and in no acute distress. HEAD: Normocephalic, atraumatic. EYES: PERRLA and EOMI. ENT: Nares with erythema edema noted bilaterally, yellow rhinorrhea no epistaxis. Mucous membranes moist. posterior pharynx with some postnasal drip. No tonsillar enlargement, no exudates or lesions present. Bilateral TMs are clear no erythema or foreign bodies the canal. NECK: Supple. No lymphadenopathy CHEST: Clear to auscultation. No respiratory distress. HEART: Regular rate and rhythm. No murmur heard. Normal peripheral pulses. ABDOMEN: Soft, nontender, nondistended, normal active bowel sounds. EXTREMITIES: Normal range of motion. No edema. SKIN: Warm, dry, no rash. NEURO: No focal deficits. Alert and oriented x3. Course Course Level of Care: Express Care Visit Reevaluation(s) Reevaluation #1: Re-evaluated patient notified him that point of care testing for flu and COVID have come back negative. Will discharge home with some oral steroids to help with the sinus symptoms. Continue taking [id number] Estephania and Flonase as needed for allergy symptoms. May use Tylenol ibuprofen as needed. Date: 05/16/24 Time: 13:07 Vital Signs Vital signs: Vital Signs Temperature 36.5 C 05/16/24 11:42 Pulse Rate 81 05/16/24 11:42 Respiratory Rate 16 05/16/24 11:42 Blood Pressure 128/86 05/16/24 11:42 Pulse Oximetry 100 05/16/24 11:42 Temperature 36.5 C 05/16/24 11:42 Pulse Rate 81 05/16/24 11:42 Respiratory Rate 16 05/16/24 11:42 Blood Pressure 128/86 05/16/24 11:42 Pulse Oximetry 100 05/16/24 11:42 Vital signs reviewed. Medical Decision Making MDM Narrative Medical decision making narrative: Plan of care for patient is to test him today for influenza and COVID because they expressed that they are getting ready to have a new grand baby in the family next week in [place] to make sure he is not contagious with anything. If these are negative most likely will prescribe him some steroids for the sinus inflammation. No evidence of an infection at this time therefore no need for antibiotics. Differential Diagnosis Differential Diagnosis: Differential diagnosis: Allergic rhinitis, chronic sinusitis, tonsillitis, acute sinusitis, infectious mononucleosis, seasonal influenza, pertussis, diphtheria, meningococcal disease, viral syndrome, viral bronchitis, RSV, COVID- 19 Vital Signs Vital Signs: Vital Signs Temperature 36.5 C 05/16/24 11:42 Pulse Rate 81 05/16/24 11:42 Respiratory Rate 16 05/16/24 11:42 Blood Pressure 128/86 05/16/24 11:42 Pulse Oximetry 100 05/16/24 11:42 Temperature 36.5 C 05/16/24 11:42 Pulse Rate 81 05/16/24 11:42 Respiratory Rate 16 05/16/24 11:42 Blood Pressure 128/86 05/16/24 11:42 Pulse Oximetry 100 05/16/24 11:42 Lab Data Labs: Lab Results 05/16/24 Range/Units 12:57 POC Influenza A Ag Negative (Negative) POC Influenza B Ag Negative (Negative) POC SARS CoV-2 Ag Negative (Negative) Critical Care Time Critical Care Time Critical Care Time: No Discharge Plan Discharge Clinical Impression: Viral sinusitis Patient Disposition: Home, Self-Care Condition: Stable Instructions: Antibiotic Form, Sinusitis (ED), Viral Syndrome (ED) Additional Instructions: Viral illness may last between 7-12days; antibiotic is NOT recommended at this time. Recommend antihistamine such as Benadryl at night time and Claritin/Zyrtec/Estephania during the day Cough syrup may cause drowsiness; avoid driving or take it at night time. take oral steroids in the morning with food. Side effects of oral steroids that can cause hyperdense and hunger. These side effects will go away once the steroids have finished. Also, recommend symptomatic treatment includes: rest, fluids, and increase humidity of the air at home. Recommend Acetaminophen or nonsteroidal anti-inflammatory agents (NSAIDs) as directed in the bottle to reduce fever and/pain/headache. Avoid smoking/second-hand smoke. Limit visits to areas with large crowds. Please schedule a follow-up visit with your personal physician for further evaluation and treatment within 3-5days. Including recheck and discussion of your blood pressure. If your symptoms persist, change or worsen significantly before you can contact your personal physician then please, without delay, go to the emergency department for further evaluation. Patient Language: Italian Prescriptions: New prednisone 20 mg tablet 20 mg PO DAILY 5 Days Qty: 5 0RF No Action sertraline 100 mg tablet 150 mg PO DAILY lisinopril 5 mg tablet See Rx Instructions .ROUTE .COMPLEX Qty: 90 1RF Dose Instruction: Take 1 tablet by mouth once daily Rx Instructions: Take 1 tablet by mouth once daily loratadine [Claritin] 10 mg tablet 10 mg PO DAILY Qty: 90 1RF Follow-up/Referrals: Pawan Bauer MD [Primary Care Provider] - Time of Disposition: 13:06
[2024-05-16 13:00] LABS: EDCOVIDSCREEN Negative (Negative); EDINFLUASCREEN Negative (Negative); EDINFLUBSCREEN Negative (Negative)
== END 2024-05-16 13:09 | disposition home or self-care (01) ==
PROVIDERS: Emergency Provider Nurse Practitioner Family; PCP Family Medicine
DX: J32.9 Chronic sinusitis, unspecified (principal); B97.89 Other viral agents as the cause of diseases classified elsewhere; G31.09 Other frontotemporal neurocognitive disorder; F02.80 Dementia in other diseases classified elsewhere, unspecified severity, without behavioral disturbance, psychotic disturbance, mood disturbance, and anxiety; Z20.822 Contact with and (suspected) exposure to COVID-19
CPT/HCPCS: 87426; 87804; 99213; G0463